=== PATIENT | female | born 1975 | race Caucasian/White ===

== ENCOUNTER 2019-12-28 12:18 | Emergency (ER) | payer OTHER, SELFPAY ==
[2019-12-28 12:30] VITALS: BP 115/99; PULSE 77; RESP 16; TEMP 37; O2SAT 100
--- NOTE | 2019-12-28 12:45 | ED.GENADULT ---
HPI - General Adult General Chief complaint: Upper Respiratory Infection Stated complaint: ear and sinus Time Seen by Provider: 12/28/19 12:52 Source: patient Mode of arrival: ambulatory Limitations: no limitations History of Present Illness HPI narrative: 44-year-old female patient presents to the [facility] with complaints of some dizziness and a little bit of fullness to the right ear for the past 4 to 5 days. Patient states she has not had any fevers, body aches or chills. Denies any headaches, congestion or runny nose denies any sore throat. Denies any chest pain or shortness of breath. Patient states that the dizziness gets worse when she goes to lie down specifically on the right side. Patient states that when she looks up or turns her head quickly towards the right the dizziness increases. Related Data Allergies Allergy/AdvReac Type Severity Reaction Status Date / Time No Known Allergies Allergy Verified 12/28/19 12:41 Review of Systems Review of Systems: Narrative: CONSTITUTIONAL: Denies fever, chills, or sweats. EYES: Denies visual changes, redness, or discharge. ENT: Denies rhinorrhea, congestion, sore throat, or otalgia. Positive fullness to right ear CARDIOVASCULAR: Denies chest pain, palpitations, or edema. RESPIRATORY: Denies cough or dyspnea. GASTROINTESTINAL: Denies abdominal pain, nausea, vomiting, or diarrhea. GENITOURINARY: Denies dysuria or hematuria. SKIN: Denies rash or itching. MUSCULOSKELETAL: Denies back pain, joint pain, or myalgia. NEUROLOGIC: Denies headache, numbness, or weakness. Positive dizziness PSYCHIATRIC: Denies anxiety or depression. PMFSH Comments At the time of my signature I agree with nursing past medical history, surgical, social, and family history. There is no relevant family history pertinent to the presenting complaint. Exam Narrative: Exam Narrative: GENERAL: Well-appearing, well-nourished, and in no acute distress. HEAD: Normocephalic, atraumatic. EYES: PERRLA and EOMI. ENT: Nares clear, no rhinorrhea or epistaxis. Mucous membranes moist. Bilateral TMs are clear with no erythema or foreign bodies to the canal. Posterior pharynx with no erythema, tonsillar margin exudates or lesions were present. NECK: Supple. No lymphadenopathy CHEST: Clear to auscultation. No respiratory distress. HEART: Regular rate and rhythm. No murmur heard. Normal peripheral pulses. ABDOMEN: Soft, nontender, nondistended, normal active bowel sounds. EXTREMITIES: Normal range of motion. No edema. SKIN: Warm, dry, no rash. NEURO: Alert and oriented x4, GCS 15. Cranial nerves II through XII grossly intact. No focal neurological deficits. Normal muscle strength and tone. Normal deep tendon reflexes. Negative Babinski, normal finger to nose coordination he had normal heel to castro glide. Speech is clear. Normal gait. Negative Romberg and no pronator drift Course Vital Signs Vital signs: Vital Signs Temperature 37.0 C 12/28/19 12:30 Pulse Rate 77 12/28/19 12:30 Respiratory Rate 16 12/28/19 12:30 Blood Pressure 115/99 H 12/28/19 12:30 Pulse Oximetry 100 12/28/19 12:30 Temperature 37.0 C 12/28/19 12:30 Pulse Rate 77 12/28/19 12:30 Respiratory Rate 16 12/28/19 12:30 Blood Pressure 115/99 H 12/28/19 12:30 Pulse Oximetry 100 12/28/19 12:30 Vital signs reviewed. Medical Decision Making Differential Diagnosis Differential Diagnosis: Differential diagnosis: Otitis media, otitis externa, perforated TM, infection of the outer ear, foreign body or cerumen impaction, ruptured TM, acute mastoiditis, ligament otitis externa, dehydration, pneumonia, sepsis, dental or intraoral infection, TMJ dysfunction Discussed with patient that her ears look good and I do not see any area of the 9 7 infection. Discussed with her that this could be possibly some positional vertigo that is causing her symptoms. Discussed with patient that I will discharge her home with some meclizine and also
== END 2019-12-28 13:07 | disposition home or self-care (01) ==
PROVIDERS: Emergency Provider Nurse Practitioner Family; PCP Family Medicine
DX: H81.11 Benign paroxysmal vertigo, right ear (principal)
CPT/HCPCS: 99213; G0463